=== PATIENT | male | born 1980 | race Caucasian/White ===

== ENCOUNTER 2021-06-24 10:18 | Outpatient (CLI) | payer BC ==
[~2021-06-24] VITALS: Ht 180.3 cm; Wt 145.5 kg
[~2021-06-24 10:18] MED LIST: CODE-54 PO; NAPR-243 PO
[2021-06-24] MEDS ORDERED: ONDANSETRON 4 MG/2 ML (SDV) Z0FRAN IV PRN (10:30)
[2021-06-24] MEDS ORDERED: CASIRIVIMAB/IMDEVIMAB 1,200 MG in NS (IVPB) 250 ML IV ONE (10:30)
[2021-06-24] MEDS ORDERED: diphenhydrAMINE 50 MG/ML INJ (BENADRYL) IV PRN (10:30)
[2021-06-24] MEDS ORDERED: ACETAMINOPHEN 500 MG TAB (TYLENOL) PO PRN (10:30)
[2021-06-24] MEDS ORDERED: EPINEPHrine INJECTION 1 MG/ML AMP IM PRN (10:30)
[2021-06-24 10:35] VITALS: BP 117/85
[2021-06-24 11:50] VITALS: BP 116/71
== END 2021-06-24 11:50 | disposition home or self-care (01) ==
LOC: INFUSION 10:18
PROVIDERS: ATTEND Physician Assistant
DX: U07.1 COVID-19 (principal)

== ENCOUNTER → 2022-09-02 | Outpatient (CLI) | payer BC | LOC: CARD 07:33 | PROVIDERS: ATTEND Internal Medicine Cardiovascular Disease | DX: I10 Essential (primary) hypertension (principal); I25.10 Atherosclerotic heart disease of native coronary artery without angina pectoris | CPT/HCPCS: 93306 ==